=== PATIENT | female | born 1930 | race Caucasian/White ===

== ENCOUNTER 2018-08-08 10:46 | Inpatient (IN) | payer MEDICARE, OTHER ==
[~2018-08-08] VITALS: Ht 180.3 cm; Wt 70.1 kg
[2018-08-08] MEDS ORDERED: ALBUTEROL/IPRATROPIUM 3 ML NEB NEB ONE (11:15)
[2018-08-08] MEDS ORDERED: METHYLPREDNISOLONE SOD SUCC 125 MG/2ML VIAL IV ONE (11:15)
[2018-08-08] MEDS ORDERED: LEVOFLOXACIN 750MG/D5W 150ML 150 ML IV ONE (11:15)
[2018-08-08] MEDS: SODIUM CHLORIDE 0.9% 1000ML 1,000 ML IV SCH ×2 (11:30→21:21)
--- NOTE | 2018-08-08 11:39 | Diagnostic Imaging Report ---
EXAMINATION: PA and lateral views of the chest. COMPARISON: None CLINICAL HISTORY: Cough x1 week DISCUSSION: The lungs are well-inflated. No focal consolidation, pleural effusion, or pneumothorax. Scattered faint nodular opacities throughout the right and left lungs. Postsurgical changes of the mediastinum with intact sternotomy wires and surgical clips. Normal heart size. Tortuous thoracic aorta with atherosclerotic calcification. No overt pulmonary edema. No acute osseous abnormality. IMPRESSION: No acute cardiopulmonary abnormality. Specifically, no evidence of consolidative pneumonia in this patient with reported history of cough. Scattered bilateral small nodular opacities are likely sequela of prior infectious or inflammatory process in the absence of known malignancy. Prior chest radiographs, if available, would be useful for comparison purposes. In the absence of prior chest radiographs, nonemergent CT scan of the chest without contrast is suggested for further evaluation. Signed by: Dr. Arvind Adames M.D. on 08/08/2018 11:35 AM
[2018-08-08] MEDS: CEFTRIAXONE SOD 1 GM VIAL IV SCH (12:30)
--- NOTE | 2018-08-08 12:56 | Diagnostic Imaging Report ---
EXAMINATION: CT scan of the chest with contrast. TECHNIQUE: Spiral CT images of the chest were performed from the lung apices to the level of the adrenal glands after the intravenous administration of 75 cc of Isovue-370. Coronal and sagittal reformatted images were obtained. COMPARISON: Chest radiograph same day CLINICAL HISTORY:Cough DISCUSSION: LINES/TUBES: None. LUNGS AND AIRWAYS: Scattered subcentimeter bilateral pulmonary nodules as follows: 5 mm right upper lobe series 3 image 44 4 mm right upper lobe series 3 image 60 5 mm lingular series 3 image 69 5 mm left lower lobe series 3 image 96 4 mm left lower lobe x2 series 3 image 100 5 mm right lower lobe series 3 image 91 5 mm superior segment right lower lobe, calcified, series 3 image 55. There are fairly extensive tree-in-bud nodular opacities within the right upper and lower lobes, and, to a lesser extent in the right middle lobe and lingula. Bandlike opacities in the lung bases, with associated segmental mucoid impaction as seen on series 3 image 99 and 87. PLEURA: No pneumothorax or pleural effusions. HEART AND MEDIASTINUM: Heterogeneous enlargement of the left lobe of the thyroid with a 1.5 cm hypoattenuating nodule and several coarse calcifications with retrosternal extension. Bilateral hilar lymphadenopathy with multiple mildly prominent mediastinal lymph nodes. Pulmonary outflow tract is of normal caliber. No ectasia or aneurysmal dilatation of the thoracic aorta. No pericardial effusion. Atherosclerotic calcification of the aortic arch, great vessels, and [place] coronary arteries. LYMPH NODES: As above ABDOMEN: Coarse calcification in hepatic segment 7. Visualized portions of the liver, spleen, pancreas, and adrenals are otherwise unremarkable. BONES AND SOFT TISSUES: Coarse calcification in the left breast. Otherwise no focal soft tissue abnormalities. No osseous destructive lesions. Postsurgical changes of the sternum and mediastinum. Multilevel degenerative disc changes of the partially visualized thoracic and lower cervical spine. IMPRESSION: Diffuse tree-in-bud and groundglass opacities suggestive of atypical infection, to include nontuberculous mycobacterium as well as fungal etiologies. Reactive hilar and mild mediastinal lymphadenopathy. Segmental mucoid impaction in the lower lobes with postobstructive aspiration pneumonitis. Scattered bilateral pulmonary nodules measuring up to 5 mm, likely sequela of prior granulomatous disease. If the patient is at high risk for malignancy, a follow-up CT scan of the chest without contrast is suggested in one year to assess for stability. Atherosclerotic vascular disease with postsurgical changes related to coronary artery bypass. Heterogeneous left thyroid nodule may be further assessed by outpatient ultrasound. Signed by: Dr. Arvind Adames M.D. on 08/08/2018 12:53 PM
[2018-08-08] MEDS ORDERED: CEFTRIAXONE SOD 1 GM VIAL IM ONE (13:00)
[2018-08-08] MEDS: AZITHROMYCIN 250MG/NS 100 ML 100 ML IV SCH (13:43)
[2018-08-08] MEDS ORDERED: SIMVASTATIN20 MG PO (17:04)
[2018-08-08] MEDS ORDERED: MIRALAX17 GM PEG (17:04)
[2018-08-08] MEDS ORDERED: GLUCOPHAGE850 MG (17:04)
[2018-08-08] MEDS ORDERED: METFORMIN HCL500 MG PO (17:04)
[2018-08-08] MEDS ORDERED: HYZAAR 50-12.51 EACH PO (17:04)
[2018-08-08] MEDS ORDERED: NITROGLYCERIN0.4 MG SL (17:04)
[2018-08-08] MEDS ORDERED: FISH OIL 1,0001 EACH PO (17:04)
[2018-08-08] MEDS ORDERED: PLAVIX75 MG PO (17:04)
[2018-08-08] MEDS ORDERED: COREG3.125 MG PO (17:04)
[2018-08-08] MEDS ORDERED: MULTI-VITAMIN1 EACH PO (17:04)
[2018-08-08] MEDS ORDERED: ISOSORBIDE MONO30 MG PO (17:04)
[2018-08-08 17:15] VITALS: BP 127/98
[2018-08-08] MEDS: ENOXAPARIN SOD INJ 40 MG/0.4 ML SYR SC SCH (18:17)
[2018-08-08 19:00] VITALS: BP 120/82
[2018-08-08] MEDS: ALBUTEROL/IPRATROPIUM 3 ML NEB NEB SCH ×2 (19:00→23:20)
[2018-08-08 20:17] LABS: BASOPHILS % 0.3 % (0.0-1.0); HEMATOCRIT 36.9 % (34.2-44.1); HEMOGLOBIN 12.4 g/dL (12.0-16.0); LYMPHOCYTES # (AUTO) 1.4 (1.0-3.2); LYMPHOCYTES % 12.2 % (18.0-39.1); MEAN CORPUSCULAR HEMOGLOBIN 31.5 pg (28-32); MEAN CORPUSCULAR HGB CONC 33.6 g/dL (31-35); MEAN CORPUSCULAR VOLUME 93.7 fL (81-99); MONOCYTES # (AUTO) 0.2 (0.2-0.8); MONOCYTES % 1.3 % (4.4-11.3); NEUTROPHILS # (AUTO) 9.8 (2.1-6.9); NEUTROPHILS % 84.4 % (38.7-80.0); PLATELET COUNT 343 x10e3/uL (140-360); RED BLOOD COUNT 3.94 x10e6/uL (3.6-5.1); RED CELL DISTRIBUTION WIDTH 12.2 % (11.7-14.4)
[2018-08-08 20:42] LABS: ALANINE AMINOTRANSFERASE 19 IU/L (0-55); ALBUMIN 2.6 g/dL (3.5-5.0); ALBUMIN/GLOBULIN RATIO 0.7 (0.8-2.0); ALKALINE PHOSPHATASE 86 IU/L (40-150); ANION GAP 17.1 mmol/L (8-16); BLOOD UREA NITROGEN 23 mg/dL (7-26); BUN/CREATININE RATIO 21 (6-25); CALCIUM 9.7 mg/dL (8.4-10.2); CARBON DIOXIDE 28 mmol/L (22-29); CHLORIDE 95 mmol/L (98-107); CREATINE KINASE 28 IU/L (29-168); EST GLOMERULAR FILTRATION RATE 47 ML/MIN (60-); GLUCOSE 329 mg/dL (74-118); POTASSIUM 4.1 mmol/L (3.5-5.1); SODIUM 136 mmol/L (136-145)
[2018-08-08 23:00] VITALS: BP 111/67
[2018-08-09] VITALS (9 sets, daily range): BP systolic 111–141; BP diastolic 63–79
[2018-08-09] MEDS: ALBUTEROL/IPRATROPIUM 3 ML NEB NEB SCH ×6 (03:30→23:45)
[2018-08-09] MEDS: SODIUM CHLORIDE 0.9% 1000ML 1,000 ML IV SCH ×2 (08:00→17:14)
[2018-08-09] MEDS ORDERED: NITROGLYCERIN 0.4 MG SUBL SL PRN (08:15)
[2018-08-09] MEDS ORDERED: [UNRECOGNIZED DRUG - OTHER] PO SCH (09:00)
[2018-08-09] MEDS ORDERED: OMEGA PO SCH (09:00)
[2018-08-09] MEDS ORDERED: FISH OIL PO SCH (09:00)
[2018-08-09] MEDS: POLYETHYLENE GLYCOL 3350 17 GM PACK PEG SCH (09:00)
[2018-08-09] MEDS ORDERED: FATTY ACIDS PO SCH (09:00)
[2018-08-09 09:17] LABS: CHOL/HDL RATIO 3.7 (3.0-3.6)
[2018-08-09] MEDS: CLOPIDOGREL BISULFATE 75 MG TAB PO SCH (09:24)
[2018-08-09] MEDS: CARVEDILOL 3.125 MG TAB PO SCH ×2 (09:24→21:14)
[2018-08-09] MEDS: MULTIVITAMINS/MINERALS TAB PO SCH (09:24)
[2018-08-09] MEDS: OMEGA 3 POLYUNSAT FATTY ACIDS 1000 MG SOFTGEL PO SCH (09:24)
[2018-08-09] MEDS: FAMOTIDINE 20 MG TAB PO SCH ×2 (09:24→16:29)
[2018-08-09] MEDS: ISOSORBIDE MONONITRATE 30 MG TAB CR PO SCH (09:27)
--- NOTE | 2018-08-09 14:02 | History and Physical ---
PRIMARY CARE PHYSICIAN: None. CHIEF COMPLAINT: Cough. HISTORY OF PRESENT ILLNESS: This is an 88-year-old woman with a history of stroke, now developing what she described as a hacky cough ongoing for 1 week, subsequently developed sore throat. Patient went to a nearby clinic through strep negative. Subsequently, went to another clinic. Chest x-ray was done yesterday, which showed pneumonia. She was sent to this hospital for further evaluation and management. Denies any chest pain. PAST MEDICAL HISTORY: Diabetes mellitus type 2, stroke, coronary artery disease, status post coronary artery bypass grafting, status post 2 stents, hypertension, secondhand cigarette exposure. PAST SURGICAL HISTORY: Coronary artery bypass grafting, coronary stent x2, appendectomy, hysterectomy, bladder suspension surgery. ALLERGIES: PER ELECTRONIC MEDICAL RECORD. FAMILY HISTORY AND SOCIAL HISTORY: Patient is . She has 1 son. No alcohol, illicits, or cigarettes. She does have significant exposure to secondhand smoking by . She is a retired exhaust and muffler fitter. MEDICATIONS: Per electronic medical record. REVIEW OF SYSTEMS: Denies any dizziness or chest pain. Denies any fevers, chills, sweats, nausea, vomiting, diarrhea, headache, back pain, or vision changes. PHYSICAL EXAMINATION VITAL SIGNS: Have been reviewed. GENERAL: A tired-appearing woman, resting in bed. HEENT: Anicteric. CARDIOVASCULAR: Normal S1 and S2. LUNGS: She has reduced breath sounds throughout. She has crackles bilaterally. ABDOMEN: Soft, nontender, and nondistended. EXTREMITIES: No edema or calf tenderness. NEUROLOGIC: Alert and oriented x3, moving all extremities. SKIN: Dry. LABS: Reviewed. MEDICATIONS: Reviewed. ASSESSMENT: This is an 88-year-old woman; 1. Community-acquired pneumonia. 2. Mediastinal lymphadenopathy. 3. Pneumonitis. 4. Pulmonary nodules. 5. Left thyroid nodule. 6. Acute kidney injury. 7. Diabetes mellitus type 2. 8. Hyperlipidemia. 9. Hypertension. PLAN 1. Antibiotics for pneumonia. 2. Pulmonary consultation for evaluation of the pulmonary nodules. 3. Will hold off steroids at this time. 4. Will need thyroid workup outpatient. 5. Will assess renal function. 6. Hemoglobin A1c and lipid panel. 7. Pepcid and Lovenox for prophylaxis. 8. Continue with statin medication. 9. Continue antihypertensive medications. Job#: [id number] CORI
[2018-08-09] MEDS: CEFTRIAXONE SOD 1 GM VIAL IV SCH (14:29)
[2018-08-09] MEDS: AZITHROMYCIN 250MG/NS 100 ML 100 ML IV SCH (14:58)
--- NOTE | 2018-08-09 15:11 | Consultation ---
DATE OF CONSULTATION: August 09, 2018 PULMONARY/CRITICAL CARE CONSULTATION REFERRING PHYSICIAN: Dr. Balwinder Schulte. HISTORY OF PRESENT ILLNESS: The patient is an 88-year-old woman. She had a history of pneumonia 12 years ago, but has not had any other respiratory problems. She denies having oxygen at home or using inhalers at home. Over the past week, she has noticed increasing cough and congestion. She noticed some fevers as well. Her cough is worse after she eats. She some times coughs and chokes while eating. The patient went to a local ready clinic. She was felt to have pneumonia and then referred to the emergency department. After her arrival in the emergency department, she had a CT scan of the chest that showed diffuse infiltrates with a tree-in-bud appearance typical for atypical pneumonia or possible aspiration. She received some antibiotics as well as some breathing treatments and noted some improvement. PAST MEDICAL HISTORY: 1. Hypertension. 2. Coronary artery disease. 3. No prior known respiratory problems. PAST SURGICAL HISTORY: 1. History of coronary bypass grafting. 2. History of stent placement times 2. ALLERGIES: SHE IS ALLERGIC TO SULFA. SOCIAL HISTORY: The patient was never a smoker. She is not a drinker. REVIEW OF SYSTEMS: The patient did have fevers at home but is afebrile here. She is not having any headache. She does not complain of neck pain. She has some cough with minimal phlegm production. She is not having any chest pain. She does note some dyspnea and congestion. She is not having any abdominal pain. There is no nausea or vomiting. She has no leg edema. PHYSICAL EXAMINATION: VITAL SIGNS: The patient is afebrile. Vital signs are stable. O2 saturation is 95% on 2 liters. Her pulse is 80 and respiratory rate is 18. HEENT: Examination shows no facial swelling or erythema. The nasal mucosa is normal. The oropharynx is normal. LYMPHATIC: Examination shows no submandibular, cervical or supraclavicular adenopathy. CARDIAC: Exam reveals a regular rate and rhythm with normal S1 and S2. There are no murmurs or rubs. LUNGS: Reveals rhonchus breath sounds bilaterally. There is no wheezing. ABDOMEN: Is soft and nontender. There is no rebound or guarding. EXTREMITIES: Shows no leg edema or calf tenderness. There is no cyanosis or clubbing. SKIN: Examination shows no rashes. LABORATORY DATA: The BUN to creatinine level is 23:1.1. The glucose is 329. White blood cell count of 11.63 and platelet count is 343,000. IMPRESSION 1. Aspiration pneumonia. 2. Possible atypical mycobacterial infection. 3. Dehydration with elevated creatinine. 4. Acute kidney injury. 5. Hyperglycemia. 6. Coronary artery disease. 7. Hypertension PLAN: 1. Continue current antibiotics to cover for aspiration pneumonia. 2. Swallowing evaluation. 3. If the patient does not improve with antibiotics for aspiration pneumonitis, with modified barium swallow, depending on the patient's clinical response to antibiotics and her swallowing test, evaluation for atypical mycobacterial infection may be required in the future. 4. Nutritional evaluation. 5. Intravenous fluids. 6. Monitor blood sugar. 7. Repeat blood test in a.m. 8. Physical therapy. Job#: [id number]
[2018-08-09] MEDS: ENOXAPARIN SOD INJ 40 MG/0.4 ML SYR SC SCH (16:29)
[2018-08-09] MEDS: SIMVASTATIN 20 MG TAB PO SCH (21:14)
[2018-08-10] VITALS (8 sets, daily range): BP systolic 123–148; BP diastolic 59–90
[2018-08-10] MEDS: SODIUM CHLORIDE 0.9% 1000ML 1,000 ML IV SCH ×2 (02:51→14:21)
[2018-08-10] MEDS: ALBUTEROL/IPRATROPIUM 3 ML NEB NEB SCH ×5 (03:40→19:35)
[2018-08-10 05:10] LABS: BASOPHILS # (AUTO) 0.1 (0.0-0.1); BASOPHILS % 0.4 % (0.0-1.0); EOSINOPHILS # (AUTO) 0.2 (0.0-0.4); EOSINOPHILS % 0.9 % (0.0-6.0); HEMATOCRIT 37.7 % (34.2-44.1); HEMOGLOBIN 12.6 g/dL (12.0-16.0); LYMPHOCYTES # (AUTO) 3.9 (1.0-3.2); LYMPHOCYTES % 24.3 % (18.0-39.1); MEAN CORPUSCULAR HEMOGLOBIN 31.4 pg (28-32); MEAN CORPUSCULAR HGB CONC 33.4 g/dL (31-35); MONOCYTES % 6.3 % (4.4-11.3); NEUTROPHILS # (AUTO) 10.6 (2.1-6.9); NEUTROPHILS % 66.3 % (38.7-80.0); PLATELET COUNT 305 x10e3/uL (140-360); RED BLOOD COUNT 4.01 x10e6/uL (3.6-5.1); RED CELL DISTRIBUTION WIDTH 12.2 % (11.7-14.4)
[2018-08-10 05:31] LABS: ALANINE AMINOTRANSFERASE 24 IU/L (0-55); ALBUMIN 2.6 g/dL (3.5-5.0); ALBUMIN/GLOBULIN RATIO 0.8 (0.8-2.0); ALKALINE PHOSPHATASE 74 IU/L (40-150); ANION GAP 14.8 mmol/L (8-16); BLOOD UREA NITROGEN 22 mg/dL (7-26); BUN/CREATININE RATIO 27 (6-25); CALCIUM 9.6 mg/dL (8.4-10.2); CARBON DIOXIDE 27 mmol/L (22-29); CHLORIDE 105 mmol/L (98-107); CREATININE, SERUM 0.83 mg/dL (0.57-1.11); EST GLOMERULAR FILTRATION RATE > 60 ML/MIN (60-); GLUCOSE 123 mg/dL (74-118); POTASSIUM 3.8 mmol/L (3.5-5.1); SODIUM 143 mmol/L (136-145)
[2018-08-10] MEDS: POLYETHYLENE GLYCOL 3350 17 GM PACK PEG SCH (08:21)
[2018-08-10] MEDS: MULTIVITAMINS/MINERALS TAB PO SCH (08:25)
[2018-08-10] MEDS: ISOSORBIDE MONONITRATE 30 MG TAB CR PO SCH (08:25)
[2018-08-10] MEDS: OMEGA 3 POLYUNSAT FATTY ACIDS 1000 MG SOFTGEL PO SCH (08:25)
[2018-08-10] MEDS: CARVEDILOL 3.125 MG TAB PO SCH ×2 (08:25→20:26)
[2018-08-10] MEDS: CLOPIDOGREL BISULFATE 75 MG TAB PO SCH (08:25)
[2018-08-10] MEDS: FAMOTIDINE 20 MG TAB PO SCH ×2 (08:25→17:11)
[2018-08-10] MEDS ORDERED: DEXTROSE 50% SYRINGE 50 ML IV PRN (10:00)
[2018-08-10] MEDS: INSULIN REGULAR, HUMAN 100 UNIT/1 ML 3ML VIAL SQ SCH ×3 (11:48→20:26)
[2018-08-10] MEDS: AZITHROMYCIN 250MG/NS 100 ML 100 ML IV SCH (14:21)
[2018-08-10] MEDS: CEFTRIAXONE SOD 1 GM VIAL IV SCH (14:21)
--- NOTE | 2018-08-10 14:38 | Progress Note ---
DATE: 08/10/2018 PULMONARY PROGRESS NOTE SUBJECTIVE: The patient feels better today after receiving hydration and IV antibiotics. Her creatinine has returned to normal. Speech therapy evaluated her swallowing function but the final results are still not available. Dietary evaluated the patient and noticed inadequate caloric and protein intake. PHYSICAL EXAMINATION GENERAL: The patient is afebrile. VITAL SIGNS: Stable. HEENT: Shows no facial swelling or erythema. CARDIAC: Reveals regular, rate and rhythm with normal S1 and S2. LUNGS: Auscultation of the lung shows clear breath sounds bilaterally. There is no wheezing. ABDOMEN: Soft, nontender. There is no rebound or guarding. EXTREMITIES: Shows no leg edema or calf tenderness. There is no cyanosis or clubbing. SKIN: Shows no rashes. IMPRESSION 1. Aspiration pneumonia with sepsis, present on admission. 2. Acute kidney injury. 3. Dehydration that has resolved. 4. Moderate protein-calorie malnutrition. 5. Possible atypical mycobacterial infection. 6. Diabetes with hyperglycemia. PLAN 1. Continued current antibiotics. 2. Await results of swallowing evaluation. 3. Patient will require follow up as an outpatient along with a followup CT scan to check for resolution of the findings. 4. If the findings do not improve with treatment for aspiration pneumonitis, then a bronchoscopy to evaluate for atypical mycobacterial infection is indicated. 5. Address nutritional needs. Job#: [id number] LPA MTDD
[2018-08-10] MEDS: ENOXAPARIN SOD INJ 40 MG/0.4 ML SYR SC SCH (17:11)
[2018-08-10] MEDS: SIMVASTATIN 20 MG TAB PO SCH (20:26)
--- NOTE | 2018-08-10 23:18 | Progress Note ---
DATE: August 10, 2018 TIME: 7:15 a.m. OVERNIGHT: Feeling a little better. REVIEW OF SYSTEMS: Denies any dizziness or chest pain. Denies any fever, chills, sweats, nausea, vomiting, or diarrhea. She did have some difficulty swallowing. PHYSICAL EXAMINATION VITAL SIGNS: Reviewed. GENERAL APPEARANCE: Tired-appearing woman resting in bed. HEENT: Anicteric. CARDIOVASCULAR: Normal S1 and S2. No murmurs. LUNGS: Decreased breath sounds throughout. She has crackles bilaterally. ABDOMEN: Soft, nontender, and nondistended. EXTREMITIES: No edema or calf tenderness. SKIN: Dry. PSYCHIATRIC: Flat affect. LABS: Reviewed. MEDICATIONS: Reviewed. ASSESSMENT: An 88-year-old woman with: 1. Community-acquired pneumonia. 2. Lymphadenopathy. 3. Pneumonitis. 4. Pulmonary nodules. 5. Left thyroid nodule. 6. Acute kidney injury. 7. Diabetes mellitus type 2; hemoglobin A1c is 6.0 and LDL of 54. 8. Hypertension. 9. Hyperlipidemia. 10. Dysphagia. PLAN 1. Swallow evaluation. 2. Antibiotics for pneumonia. 3. White count has increased from 11,000 to 15,000 without the antibiotics. 4. Acute kidney injury, resolving. 5. Follow up swallow evaluation. 6. Continue supportive care. Job#: [id number] DESIREE
[2018-08-11] MEDS: ALBUTEROL/IPRATROPIUM 3 ML NEB NEB SCH ×5 (01:55→19:55)
[2018-08-11 04:47] VITALS: BP 134/72
[2018-08-11] MEDS: SODIUM CHLORIDE 0.9% 1000ML 1,000 ML IV SCH ×3 (06:33→22:25)
[2018-08-11 07:27] VITALS: BP 142/77
[2018-08-11] MEDS: FAMOTIDINE 20 MG TAB PO SCH ×2 (08:30→17:50)
[2018-08-11] MEDS: CARVEDILOL 3.125 MG TAB PO SCH ×2 (08:31→21:00)
[2018-08-11] MEDS: OMEGA 3 POLYUNSAT FATTY ACIDS 1000 MG SOFTGEL PO SCH (08:31)
[2018-08-11] MEDS: POLYETHYLENE GLYCOL 3350 17 GM PACK PEG SCH (08:31)
[2018-08-11] MEDS: MULTIVITAMINS/MINERALS TAB PO SCH (08:31)
[2018-08-11] MEDS: CLOPIDOGREL BISULFATE 75 MG TAB PO SCH (08:31)
[2018-08-11] MEDS: INSULIN REGULAR, HUMAN 100 UNIT/1 ML 3ML VIAL SQ SCH ×4 (08:31→21:00)
[2018-08-11] MEDS: ISOSORBIDE MONONITRATE 30 MG TAB CR PO SCH (08:31)
[2018-08-11 09:02] LABS: BASOPHILS # (AUTO) 0.1 (0.0-0.1); BASOPHILS % 0.5 % (0.0-1.0); EOSINOPHILS # (AUTO) 0.3 (0.0-0.4); EOSINOPHILS % 2.6 % (0.0-6.0); HEMATOCRIT 41.3 % (34.2-44.1); HEMOGLOBIN 13.3 g/dL (12.0-16.0); LYMPHOCYTES # (AUTO) 3.3 (1.0-3.2); LYMPHOCYTES % 25.5 % (18.0-39.1); MEAN CORPUSCULAR HEMOGLOBIN 30.9 pg (28-32); MEAN CORPUSCULAR HGB CONC 32.2 g/dL (31-35); MONOCYTES % 7.4 % (4.4-11.3); NEUTROPHILS # (AUTO) 7.9 (2.1-6.9); NEUTROPHILS % 61.5 % (38.7-80.0); PLATELET COUNT 383 x10e3/uL (140-360); RED CELL DISTRIBUTION WIDTH 12.3 % (11.7-14.4)
[2018-08-11 09:18] LABS: ANION GAP 10.1 mmol/L (8-16); BLOOD UREA NITROGEN 15 mg/dL (7-26); BUN/CREATININE RATIO 18 (6-25); CALCIUM 10.3 mg/dL (8.4-10.2); CARBON DIOXIDE 33 mmol/L (22-29); CHLORIDE 102 mmol/L (98-107); CREATININE, SERUM 0.84 mg/dL (0.57-1.11); EST GLOMERULAR FILTRATION RATE > 60 ML/MIN (60-); GLUCOSE 154 mg/dL (74-118); POTASSIUM 4.1 mmol/L (3.5-5.1); SODIUM 141 mmol/L (136-145)
[2018-08-11 12:41] VITALS: BP 129/68
[2018-08-11] MEDS: AZITHROMYCIN 250MG/NS 100 ML 100 ML IV SCH (14:59)
[2018-08-11] MEDS: CEFTRIAXONE SOD 1 GM VIAL IV SCH (14:59)
[2018-08-11 16:32] VITALS: BP 111/58
--- NOTE | 2018-08-11 16:43 | Progress Note ---
DATE: August 11, 2018 TIME: 10:50 a.m. OVERNIGHT: No acute events. REVIEW OF SYSTEMS: Patient denies any dizziness or chest pain. Report shortness of breath with exertion such as consuming p.o. intake and repositioning. Denies fever, chills, sweats, nausea, vomiting, and diarrhea. Denies difficulty swallowing on this day. PHYSICAL EXAMINATION VITAL SIGNS: T 97.9, R 20, P 78, BP 142/77, SpO2 95% on RA. GENERAL APPEARANCE: This is a very tired-appearing woman, resting supine in bed. HEENT: Normocephalic. Mucous membranes pale, moist, and intact. No sinus tenderness. Trachea midline without JVD. CV: S1/S2 auscultated without clicks, murmurs, or rubs. RESPIRATORY: Bilateral breath sounds decreased in all stacy with fine crackles at bases and slight expiratory wheeze midline that results with cough. ABDOMEN: Soft, nontender, and nondistended. EXTREMITIES: No edema visualized. No calf tenderness. SKIN: Dry. PSYCHIATRIC: Flat affect. LABS: NA 141, K 4.1, CO of 102, CO2 of 33, gap 10.1, BUN 15, creatinine 0.83 with estimated GFR 60. Calcium 10.3. Point of care glucose ranging from 67 to 221 max last 24 hours. WBC remained elevated at 12.82 down from 16 the day prior. H and H values 13.3/41.3. Platelets elevated at 383. Influenza screening negative. Urine Legionella pending. MEDICATIONS 1. Rocephin 1 g q.24. 2. Azithromycin IV q.24. 3. Normal saline at 100 mL an hour. 4. DuoNeb q.4 hours routine. 5. Fish oil 1 g p.o. daily. 6. MiraLAX 1 pack daily. 7. MDI 1 p.o. q.d. 8. Imdur 30 mg p.o. daily. 9. Plavix 75 p.o. daily. 10. Coreg 3.125 p.o. q.12 hours. 11. Pepcid 20 b.i.d. a.c. 12. Zocor 20 mg p.o. at bedtime. 13. Lovenox at 1700. 14. Sliding scale insulin. ASSESSMENT AND PLAN: This is an 88-year-old woman with; 1. Community-acquired pneumonia. Continue IV antibiotics. 2. Lymphadenopathy. 3. Pneumonitis. Appreciate pulmonary consult. 4. Left thyroid nodule. Followup as outpatient. 5. Acute kidney injury, resolved with IV fluids. 6. Diabetes mellitus type 2. Hemoglobin A1c and LDLs reviewed. Continue sliding scale insulin. 7. Hypertensin. Continue to monitor and current treatment. 8. Hyperlipidemia, statin. 9. Dysphagia. Swallow eval indicated. Patient could have regular fluid and thin liquids at this time. Patient tolerated the small amounts noted this date. 10. Prophylaxis. Lovenox and Pepcid. DISPOSITION: Patient will need outpatient followup for pulmonary nodules and thyroid nodules. Continue IV antibiotics as the patient is complaining of severe fatigue. At this time, continue supportive care. Dictated by: Joseph Chavarria NP Job#: [id number] CORI
[2018-08-11] MEDS: ENOXAPARIN SOD INJ 40 MG/0.4 ML SYR SC SCH (17:50)
[2018-08-11 20:00] VITALS: BP 122/58
[2018-08-11] MEDS: SIMVASTATIN 20 MG TAB PO SCH (21:00)
[2018-08-12] VITALS (8 sets, daily range): BP systolic 122–189; BP diastolic 60–81
[2018-08-12] MEDS: ALBUTEROL/IPRATROPIUM 3 ML NEB NEB SCH ×5 (00:10→15:46)
[2018-08-12 06:18] LABS: BASOPHILS # (AUTO) 0.1 (0.0-0.1); BASOPHILS % 0.6 % (0.0-1.0); EOSINOPHILS # (AUTO) 0.5 (0.0-0.4); EOSINOPHILS % 4.7 % (0.0-6.0); HEMATOCRIT 36.8 % (34.2-44.1); HEMOGLOBIN 12.2 g/dL (12.0-16.0); LYMPHOCYTES # (AUTO) 3.1 (1.0-3.2); LYMPHOCYTES % 29.6 % (18.0-39.1); MEAN CORPUSCULAR HEMOGLOBIN 31.3 pg (28-32); MEAN CORPUSCULAR HGB CONC 33.2 g/dL (31-35); MEAN CORPUSCULAR VOLUME 94.4 fL (81-99); MONOCYTES # (AUTO) 0.9 (0.2-0.8); MONOCYTES % 8.5 % (4.4-11.3); NEUTROPHILS # (AUTO) 5.6 (2.1-6.9); NEUTROPHILS % 53.6 % (38.7-80.0); PLATELET COUNT 325 x10e3/uL (140-360); RED CELL DISTRIBUTION WIDTH 12.6 % (11.7-14.4)
[2018-08-12] MEDS: SODIUM CHLORIDE 0.9% 1000ML 1,000 ML IV SCH (06:19)
[2018-08-12 06:40] LABS: ANION GAP 11.9 mmol/L (8-16); BLOOD UREA NITROGEN 15 mg/dL (7-26); BUN/CREATININE RATIO 19 (6-25); CALCIUM 8.1 mg/dL (8.4-10.2); CARBON DIOXIDE 27 mmol/L (22-29); CHLORIDE 104 mmol/L (98-107); CREATININE, SERUM 0.77 mg/dL (0.57-1.11); EST GLOMERULAR FILTRATION RATE > 60 ML/MIN (60-); GLUCOSE 127 mg/dL (74-118); POTASSIUM 3.9 mmol/L (3.5-5.1); SODIUM 139 mmol/L (136-145)
[2018-08-12] MEDS: POLYETHYLENE GLYCOL 3350 17 GM PACK PEG SCH (09:00)
[2018-08-12] MEDS: FAMOTIDINE 20 MG TAB PO SCH ×2 (09:21→15:42)
[2018-08-12] MEDS: INSULIN REGULAR, HUMAN 100 UNIT/1 ML 3ML VIAL SQ SCH ×3 (09:22→15:42)
[2018-08-12] MEDS: OMEGA 3 POLYUNSAT FATTY ACIDS 1000 MG SOFTGEL PO SCH (09:22)
[2018-08-12] MEDS: CLOPIDOGREL BISULFATE 75 MG TAB PO SCH (09:22)
[2018-08-12] MEDS: ISOSORBIDE MONONITRATE 30 MG TAB CR PO SCH (09:22)
[2018-08-12] MEDS: CARVEDILOL 3.125 MG TAB PO SCH (09:22)
[2018-08-12] MEDS: MULTIVITAMINS/MINERALS TAB PO SCH (09:22)
[2018-08-12] MEDS ORDERED: TESSALON PERLE100 MG PO (09:30)
[2018-08-12] MEDS ORDERED: LEVAQUIN500 MG PO (09:30)
[2018-08-12 10:26] LABS: EOSINOPHILS % (MANUAL) 2 % (0-7); LYMPHOCYTES % (MANUAL) 29 % (19-48); METAMYELOCYTES % (MANUAL) 1 % (0-0); MONOCYTES % (MANUAL) 6 % (3.4-9.0); MYELOCYTES % (MANUAL) 2 % (0-0); NEUTROPHILS % (MANUAL) 60 % (40-74)
[2018-08-12 10:32] LABS: ANISOCYTOSIS SLIGHT; PLATELET ESTIMATE ADEQUATE; PLATELET MORPHOLOGY COMMENT NORMAL; RBC MORPHOLOGY COMMENT NORMAL
[2018-08-12] MEDS ORDERED: LABETALOL HCL 5 MG/ML 20ML VIAL IV PRN (11:45)
[2018-08-12] MEDS: CEFTRIAXONE SOD 1 GM VIAL IV SCH (13:40)
[2018-08-12] MEDS: AZITHROMYCIN 250MG/NS 100 ML 100 ML IV SCH (13:40)
[2018-08-12] MEDS: ENOXAPARIN SOD INJ 40 MG/0.4 ML SYR SC SCH (15:42)
--- NOTE | 2018-08-13 12:10 | Diagnostic Imaging Report ---
PROCEDURE: X-RAY MODIFIED BARIUM SWALLOW COMPARISON: None. INDICATION: Difficulty swallowing DISCUSSION: Fluoroscopic examination was performed in conjunction with speech pathology during swallowing a variety of thin and thick liquid consistencies. CONCLUSION: Limited fluoroscopic sequences are provided which demonstrate a small amount of penetration to the level of the vocal cords with associated aspiration. Please refer to speech pathology report for further details. Signed by: Dr. Pamela Urban MD on 08/13/2018 12:07 PM
--- NOTE | 2018-08-13 22:19 | Discharge Summary ---
PRINCIPAL DIAGNOSES: 1. Community-acquired pneumonia. 2. Lymphadenopathy. 3. Pneumonitis. 4. Pulmonary nodules. 5. Left thyroid nodule. 6. Acute kidney injury. 7. Diabetes mellitus type 2. Hemoglobin A1c 6.0, LDL 54. 8. Dysphagia. SECONDARY DIAGNOSIS: Diabetes mellitus type 2. CHIEF COMPLAINT AND HISTORY OF PRESENT ILLNESS: Please refer to H and P. HOSPITAL COURSE: Patient found to have community-acquired pneumonia, received antibiotics. Also had lymphadenopathy and pneumonitis, treated conservatively. Pulmonary services assisted in management. Patient had pulmonary nodules, will need to follow up outpatient. Has left thyroid nodule, further outpatient workup is needed. Had acute kidney injury, improved with IV fluids. Diabetes mellitus type 2, hemoglobin A1c 6.0, LDL 54, currently at goal and controlled. Had hypertension and hyperlipidemia and dysphagia. Swallow eval was negative. Patient's white count improved. Patient subsequently transitioned home. Will continue antibiotic . DISCHARGE MEDICATIONS: Per electronic medical record. Discharge medications include Levaquin. FOLLOWUP: With primary care doctor in 1 week. Follow up with pulmonary services in 2 weeks. DANIELA PERAZA MD Job#: [id number]
--- OUTSIDE RECORDS SUMMARY | 2018-08-20 10:38 | XMS REPORT | Encounter Summary ---
Author Organization Unknown Address [address] [place] [address] Phone [phone] Reason for Visit Medical Complaint; body aches, sore throat and fever Instructions 1. Acute upper respiratory infection rapid strep group A, throat upper respiratory infection (cold): care instructions 2. Acute bronchitis Tessalon Perles 100 mg capsule bronchitis: care instructions albuterol sulfate HFA 90 mcg/actuation aerosol inhaler Zithromax 250 mg tablet 3. Elevated blood pressure elevated blood pressure: care instructions Discussion Note: None recorded. Plan of Care Patient Instructions Take albuterol every 4-6 hoursfor at least the next 5 days. Please complete antibiotic course even after symptoms resolve. Please f/u with PCP in 1 week or seek care immediatelyif you are short of breath, have trouble breathing, or can't catch breath. Please follow up with PCP for further testing and evaluation of hypertension. Please follow up with PCP/UC/ER if symptoms get worse or no improvement in 3 days. Patient verbalizes understanding and agrees to the plan. Reminders Provider Appointments None recorded. Lab Rapid Strep Group a, Throat 06/05/2016 [facility] Referral None recorded. Procedures None recorded. Surgeries None recorded. Imaging None recorded. Medications Name Start Date albuterol sulfate HFA 90 mcg/actuation aerosol inhaler Inhale 2 puff(s) every 4-6 hours by inhalation route as needed for wheezing. amitriptyline 25 mg tablet amoxicillin 500 mg capsule Azasite 1 % eye drops Benicar HCT 40 mg-12.5 mg tablet carvedilol 6.25 mg tablet cephalexin 500 mg capsule ciprofloxacin 250 mg tablet clopidogrel 75 mg tablet doxycycline hyclate 100 mg tablet fluorometholone 0.1 % eye drops,suspension fluticasone 50 mcg/actuation nasal spray,suspension Inhale 2 sprays in each nostril x1 week, then 1 spray in each nostril daily. FreshKote 2 %-0.9 %-1.8 % eye drops hydrocodone 7.5 mg-acetaminophen 325 mg tablet isosorbide mononitrate ER 30 mg tablet,extended release 24 hr isosorbide mononitrate ER 60 mg tablet,extended release 24 hr losartan 50 mg-hydrochlorothiazide 12.5 mg tablet metformin 1,000 mg tablet mupirocin 2 % topical ointment nitroglycerin 0.4 mg/hr transdermal 24 hour patch Nitrostat 0.4 mg sublingual tablet oxybutynin chloride ER 10 mg tablet,extended release 24 hr Restasis 0.05 % eye drops in a dropperette simvastatin 20 mg tablet Tessalon 200 mg capsule Take 1 CAPSULE 3 TIMES A DAY by oral route as needed for cough. Tessalon Perles 100 mg capsule Take 1 capsule(s) 3 times a day by oral route as needed for cough. Zithromax 250 mg tablet TAKE 2 TABLETS (500 MG) BY ORAL ROUTE ONCE DAILY FOR 1 DAY THEN 1 TABLET (250 MG) BY ORAL ROUTE ONCE DAILY FOR 4 DAYS Zostavax (PF) 19,400 unit/0.65 mL subcutaneous suspension Medications Administered None recorded. Vitals Height Weight BMI Blood Pressure 5 ft 11 in 165 lbs 23 (1) 160/82 (2) 150/80 Lab Results Date Name Result Description Value Range Status Rapid Strep Group a, Throat Result negative Swab Location Left and Right tonsillar pillars Allergies Name Reaction Severity Onset Sulfa (Sulfonamide Antibiotics) Hives Moderate Problems Name Status Onset Date Source Acute Upper Respiratory Infection Active Encounter Acute Bronchitis Active Encounter Elevated Blood Pressure Active Encounter Procedures None recorded. Vaccine List Vaccine Type influenza, high dose seasonal 08/04/2015 Social History Smoking Status Never Smoker Past Encounters 06/05/2016 Acute Upper Respiratory Infection; Acute Bronchitis; Elevated Blood Pressure Nicolewoodrow Clancy [facility]: [address] [place] [address], Ph. History of Present Illness [id number] Reported By: Patient HPI: Location: head/sinuses. Quality: productive cough, sore throat, colored phlegm, dry cough. Duration: 14days. Severity: moderate. Onset/Timing: gradual. Context: no sick contacts, no foreign travel, non-smoker. Modifying factors: OTC medication. Associated Symptoms: no shortness of breath, no wheezing, no change in number of pillows needed to sleep at night, no sweats, no significant weight gain, no significant weight loss, no morning cough, no sore throat, no vomiting, no diarrhea, no rash, no nausea, yellow sputum Review of Systems Basic Reported By: Patient Constitutional: Constitutional: fever Eyes: Eyes: no eye complaints Gnbb-Rbsw-Udrgh-Throat: Ears: no ear complaints. Nose: no nose/sinus problems. Mouth/Throat: no bleeding gums, no mouth complaints, no teeth problems, sore throat Cardiovascular: Cardiovascular: no chest pain, no shortness of breath, no known heart murmur Respiratory: Respiratory: no wheezing, no shortness of breath, cough Gastrointestinal: Gastrointestinal: no abdominal pain, no vomiting / diarrhea Genitourinary: Genitourinary: no urinary complaints, no discharge Musculoskeletal: Musculoskeletal: no muscle weakness, no arthralgias/joint pain, no back pain, muscle aches Skin: Skin: no abnormal / changing mole, no jaundice, no rashes Neurologic: Neurologic: no loss of consciousness, no weakness, no numbness, no seizures, no dizziness, no headaches Physical Exam Adult Basic, Adult Female Complete Constitutional: General Appearance: healthy-appearing, well-nourished, well-developed. Level of Distress: NAD. Ambulation: ambulating normally Psychiatric: Mental Status: active and alert. Orientation: to time, to place, to person Eyes: Lids and Conjunctivae: non-injected, no discharge, no pallor. Pupils: PERRLA. EOM: EOMI. Lens: clear. Sclerae: non-icteric Bxx-Tavo-Wttxn-Throat: Ears: no lesions on external ear, no outer ear tenderness, EACs clear, TMs clear. Hearing: no hearing loss. Nose: no lesions on external nose, nares patent, no septal deviation, nasal passages clear, no sinus tenderness, no nasal discharge. Lips, Teeth, and Gums: no mouth or lip ulcers, no bleeding gums, normal dentition. Oropharynx: moist mucous membranes, no exudates, tonsils not enlarged, erythema Neck: Neck: supple. Lymph Nodes: no cervical LAD Lungs: Respiratory effort: no dyspnea, no tachypnea, no use of accessory muscles, no intercostal retractions. Auscultation: expiratory wheezing Cardiovascular: Heart Auscultation: RRR, no murmurs Neurologic: Gait and Station: normal gait
--- OUTSIDE RECORDS SUMMARY | 2018-08-20 10:38 | XMS REPORT | Continuity of Care Document ---
Author Author [facility] Interface Address Unknown Phone Unavailable Problems Problem Status Onset Date Classification Date Reported Comments Source Sore throat symptom 08/07/2018 Diagnosis 08/07/2018 [facility] Nasal congestion 08/07/2018 Diagnosis 08/07/2018 [facility] Decreased breath sounds 08/07/2018 Diagnosis 08/07/2018 [facility] Fever 08/07/2018 Diagnosis 08/07/2018 [facility] Cough 08/07/2018 Diagnosis 08/07/2018 [facility] Hyperlipidemia 08/07/2018 Problem 08/07/2018 [facility] Heart Disease 08/07/2018 Problem 08/07/2018 [facility] Cerebrovascular Accident 08/07/2018 Problem 08/07/2018 [facility] Pneumonia 08/07/2018 Problem 08/07/2018 [facility] Arthritis 08/07/2018 Problem 08/07/2018 [facility] Hyperglycemia 08/07/2018 Problem 08/07/2018 [facility] Acute upper respiratory infection 06/05/2016 Diagnosis 06/05/2016 [facility] Acute bronchitis 06/05/2016 Diagnosis 06/05/2016 [facility] Elevated blood pressure 06/05/2016 Diagnosis 06/05/2016 [facility] Elevated Blood Pressure Problem 08/07/2018 [facility] Acute Upper Respiratory Infection Problem 06/05/2016 [facility] Acute Bronchitis Problem 06/05/2016 [facility] Medications Medication Details Route Status Patient Instructions Ordering Provider Order Date Source carvedilol 6.25 MG Oral Tablet carvedilol 6.25 mg tablet Active [facility] clopidogrel 75 MG Oral Tablet clopidogrel 75 mg tablet Active [facility] Hydrochlorothiazide 12.5 MG / Losartan Potassium 50 MG Oral Tablet losartan 50 mg-hydrochlorothiazide 12.5 mg tablet Active [facility] Metformin hydrochloride 1000 MG Oral Tablet metformin 1,000 mg tablet Active [facility] Cyclosporine 0.5 MG/ML Ophthalmic Suspension [Restasis] Restasis 0.05 % eye drops in a dropperette Active [facility] Simvastatin 20 MG Oral Tablet simvastatin 20 mg tablet Active [facility] 0.65 ML Varicella-Zoster Virus Vaccine Live ([facility]) strain [id number] UNT/ML Injection [Zostavax] Zostavax (PF) 19,400 unit/0.65 mL subcutaneous suspension Active [facility] 200 ACTUAT Albuterol 0.09 MG/ACTUAT Metered Dose Inhaler albuterol sulfate HFA 90 mcg/actuation aerosol inhaler Inhale 2 puff(s) every 4- 6 hours by inhalation route as needed for wheezing. Active [facility] Amitriptyline Hydrochloride 25 MG Oral Tablet amitriptyline 25 mg tablet Active [facility] Amoxicillin 500 MG Oral Capsule amoxicillin 500 mg capsule Active [facility] Azithromycin 10 MG/ML Ophthalmic Solution [AzaSite] Azasite 1 % eye drops Active [facility] Hydrochlorothiazide 12.5 MG / Olmesartan medoxomil 40 MG Oral Tablet [Benicar HCT] Benicar HCT 40 mg-12.5 mg tablet Active [facility] Cephalexin 500 MG Oral Capsule cephalexin 500 mg capsule Active [facility] Ciprofloxacin 250 MG Oral Tablet ciprofloxacin 250 mg tablet Active [facility] doxycycline hyclate 100 MG Oral Tablet doxycycline hyclate 100 mg tablet Active [facility] Fluorometholone 1 MG/ML Ophthalmic Suspension fluorometholone 0.1 % eye drops,suspension Active [facility] Fluticasone propionate 0.05 MG/ACTUAT Metered Dose Nasal [place] fluticasone 50 mcg/actuation nasal spray,suspension Inhale 2 sprays in each nostril x1 week, then 1 spray in each nostril daily. Active [facility] Polyvinyl Alcohol 27 MG/ML / Povidone 20 MG/ML Ophthalmic Solution [Freshkote] FreshKote 2 %-0.9 %-1.8 % eye drops Active [facility] Acetaminophen 325 MG / Hydrocodone Bitartrate 7.5 MG Oral Tablet hydrocodone 7.5 mg-acetaminophen 325 mg tablet Active [facility] 24 HR Isosorbide Mononitrate 30 MG Extended Release Oral Tablet isosorbide mononitrate ER 30 mg tablet,extended release 24 hr Active [facility] 24 HR Isosorbide Mononitrate 60 MG Extended Release Oral Tablet isosorbide mononitrate ER 60 mg tablet,extended release 24 hr Active [facility] Mupirocin 0.02 MG/MG Topical Ointment mupirocin 2 % topical ointment Active [facility] 24 HR Nitroglycerin 0.4 MG/HR Transdermal Patch nitroglycerin 0.4 mg/hr transdermal 24 hour patch Active [facility] Nitroglycerin 0.4 MG Sublingual Tablet [Nitrostat] Nitrostat 0.4 mg sublingual tablet Active [facility] 24 HR Oxybutynin chloride 10 MG Extended Release Oral Tablet oxybutynin chloride ER 10 mg tablet,extended release 24 hr Active [facility] benzonatate 200 MG Oral Capsule [Tessalon] Tessalon 200 mg capsule Take 1 CAPSULE 3 TIMES A DAY by oral route as needed for cough. Active [facility] benzonatate 100 MG Oral Capsule [Tessalon Perles] Tessalon Perles 100 mg capsule Take 1 capsule(s) 3 times a day by oral route as needed for cough. Active [facility] Azithromycin 250 MG Oral Tablet [Zithromax] Zithromax 250 mg tablet TAKE 2 TABLETS (500 MG) BY ORAL ROUTE ONCE DAILY FOR 1 DAY THEN 1 TABLET (250 MG) BY ORAL ROUTE ONCE DAILY FOR 4 DAYS Active [facility] Allergies, Adverse Reactions, Alerts Substance Category Reaction Severity Reaction type Status Date Reported Comments Source Sulfa (Sulfonamide Antibiotics) Hives Moderate Allergy to substance 10/25/2012 [facility] Immunizations Immunization Date Given Site Status Last Updated Comments Source influenza, injectable, quadrivalent 07/11/2018 completed [facility] influenza, high dose seasonal 08/05/2015 completed [facility] Results Order Name Results Value Reference Range Date Interpretation Comments Source Influenza A negative 08/07/2018 [facility] Influenza B negative 08/07/2018 [facility] RESULT negative 08/07/2018 [facility] SWAB LOCATION Left and Right tonsillar pillars 08/07/2018 [facility] RESULT negative 06/05/2016 [facility] SWAB LOCATION Left and Right tonsillar pillars 06/05/2016 [facility] Vital Signs Vital Sign Value Date Comments Source Diastolic (mm Hg) 80 08/07/2018 [facility] Height 71 08/07/2018 [facility] Systolic (mm Hg) 110 08/07/2018 [facility] Weight 142 08/07/2018 [facility] Diastolic (mm Hg) 80 06/05/2016 [facility] Height 71 06/05/2016 [facility] Systolic (mm Hg) 150 06/05/2016 [facility] Weight 165 06/05/2016 [facility] Encounters Location Location Details Encounter Type Encounter Number Reason For Visit Attending Provider ADM Date DC Date Status Source [place] - [facility] - [id number] Nicole Clancy, DUMP GRADER: [address] [place] [address], Ph. [id number] Nicole Clancy 06/05/2016 [facility] [place] - [facility] [id number] Haily Christianson PA-C: [address] [place] [address], Ph. [id number] Haily Christianson 08/07/2018 [facility] Procedures Procedure Code Date Perfomer Comments Source Cardiac Revascularization with Bypass Anastomosis [facility] Placement of Stent in Cardiac Conduit [facility] Fixed Suspension Procedure of Bladder Neck [facility] Hysterectomy [facility] Appendectomy [facility] Tonsillectomy [facility]
--- OUTSIDE RECORDS SUMMARY | 2018-08-20 10:38 | XMS REPORT | Encounter Summary ---
Author Organization Unknown Address [address] [place] [address] Phone [phone] Reason for Visit Medical Complaint Instructions 1. Cough 2. Fever rapid flu (A+B) 3. Decreased breath sounds 4. Nasal congestion 5. Sore throat symptom rapid strep group A, throat Discussion Note Pt was sent to urgent care for chest xray as concern for pneumonia is high Patient educational handouts: No information available. Plan of Care Reminders Provider Appointments None recorded. Lab Rapid Strep Group a, Throat 08/07/2018 [facility] Rapid Flu (A+B) 08/07/2018 [facility] Referral None recorded. Procedures None recorded. Surgeries None recorded. Imaging None recorded. Medications Name Start Date carvedilol 6.25 mg tablet clopidogrel 75 mg tablet losartan 50 mg-hydrochlorothiazide 12.5 mg tablet metformin 1,000 mg tablet Restasis 0.05 % eye drops in a dropperette simvastatin 20 mg tablet Zostavax (PF) 19,400 unit/0.65 mL subcutaneous suspension Medications Administered None recorded. Vitals Height Weight BMI Blood Pressure 5 ft 11 in 142 lbs 19.8 kg/m2 110/80 mm[Hg] Lab Results Date Name Specimen Result Interpretation Description Value Range Status Address Rapid Flu (A+B) Influenza a negative [facility]: [address] [place] [address] Influenza B negative [facility]: [address] [place] [address] Rapid Strep Group a, Throat Result negative [facility]: [address] [place] [address] Swab Location Left and Right tonsillar pillars [facility]: [address] [place] [address] Allergies Code Code System Name Reaction Severity Status Onset Sulfa (Sulfonamide Antibiotics) Hives Moderate Active Problems Name Status Onset Date Source Hyperlipidemia Active 08/07/2018 Heart Disease Active 08/07/2018 Cerebrovascular Accident Active 08/07/2018 Pneumonia Active 08/07/2018 Arthritis Active 08/07/2018 Hyperglycemia Active 08/07/2018 Elevated Blood Pressure Active Encounter Procedures Date Name Performed by Cardiac Revascularization with Bypass Anastomosis Information not available Placement of Stent in Cardiac Conduit Information not available Fixed Suspension Procedure of Bladder Neck Information not available Hysterectomy Information not available Appendectomy Information not available Tonsillectomy Information not available Vaccine List Vaccine Type influenza, high dose seasonal 08/05/2015 influenza, injectable, quadrivalent 07/11/2018 Social History Smoking Status Never Smoker Past Encounters 08/07/2018 Cough; Fever; Decreased Breath Sounds; Nasal Congestion; Sore Throat Symptom Haily Christianson PA-C: [address] [place] [address], Ph. History of Present Illness Cough Reported By: Patient HPI: Location: chest, nasal/sinus. Quality: productive cough, sore throat, colored phlegm, congested, hacking cough. Duration: 5 days. Severity: mild. Onset/Timing: sudden. Context: no sick contacts, no foreign travel, non-smoker. Modifying factors: OTC medication. Associated Symptoms: no shortness of breath, no wheezing, no sweats, no significant weight gain, no significant weight loss, no morning cough, no vomiting, no diarrhea, no rash, no muscle aches, yellow sputum, sore throat, nausea, fever/chills, headache Review of Systems Basic Reported By: Patient Constitutional: Constitutional: fever Eyes: Eyes: no eye complaints Vszo-Rlyk-Vdldx-Throat: Ears: ear pain. Nose: nose/sinus problems. Mouth/Throat: no bleeding gums, no mouth complaints, no teeth problems, sore throat Cardiovascular: Cardiovascular: no chest pain, no shortness of breath, no known heart murmur Respiratory: Respiratory: cough, wheezing, shortness of breath Gastrointestinal: Gastrointestinal: no abdominal pain, no vomiting / diarrhea Genitourinary: Genitourinary: no urinary complaints, no discharge Musculoskeletal: Musculoskeletal: no muscle aches, no muscle weakness, no arthralgias/joint pain, no back pain Skin: Skin: no abnormal / changing mole, no jaundice, no rashes Neurologic: Neurologic: no loss of consciousness, no weakness, no numbness, no seizures, no headaches, dizziness, headache Physical Exam Adult Basic Reported By: Patient Constitutional: General Appearance: healthy-appearing, well-nourished, well-developed. Level of Distress: NAD. Ambulation: limited ambulation Psychiatric: Mental Status: active and alert. Orientation: to time, to place, to person Eyes: Lids and Conjunctivae: non-injected, no discharge, no pallor. Pupils: PERRLA. EOM: EOMI. Sclerae: non-icteric. Vision: acuity grossly intact Kch-Ikpu-Cqroy-Throat: Ears: no lesions on external ear, no outer ear tenderness, EACs clear, TMs clear. Hearing: no hearing loss. Nose: no lesions on external nose, nares patent, no septal deviation, nasal passages clear, no sinus tenderness, nasal discharge, post nasal drip. Lips, Teeth, and Gums: no mouth or lip ulcers, no bleeding gums, normal dentition. Oropharynx: moist mucous membranes, no erythema, no exudates, tonsils not enlarged; cobblestoning Neck: Neck: supple, trachea midline, no masses, FROM. Lymph Nodes: no cervical LAD, no supraclavicular LAD Lungs: Respiratory effort: no dyspnea, no tachypnea, no use of accessory muscles, no intercostal retractions. Auscultation: decreased breath sounds Cardiovascular: Heart Auscultation: RRR, no murmurs
--- OUTSIDE RECORDS SUMMARY | 2018-08-20 10:45 | XMS REPORT ---
Author Author [facility] Address Unknown Phone Unavailable Care Team Providers Care Detective And Intelligence Analyst Name Role Phone DANIELA PERAZA Unavailable Unavailable Problems This patient has no known problems. Allergies, Adverse Reactions, Alerts This patient has no known allergies or adverse reactions. Medications This patient has no known medications. Results Test Description Test Time Test Comments Text Results Atomic Results Result Comments MODIFIED BA. SWALLOW 2018-08-13 10:10:00 [place] [address] Patient Name: NALDO SHAFER MR #: [id number] : 1930 Age/Sex: 88/F Req #: [id number] [facility] Physician: DANIELA PERAZA MD Ordered by: KEITH PADRON MD Report #: [id number] Location: MED/[id number] Room/Bed: [facility] Procedure: [id number] DX/MODIFIED BA. SWALLOW Exam Date: 08/09/18 Exam Time: 1430 REPORT STATUS: Signed PROCEDURE: X-RAY MODIFIED BARIUM SWALLOW COMPARISON: None. INDICATION: Difficulty swallowing DISCUSSION: Fluoroscopic examination was performed in conjunction with speech pathology during swallowing a variety of thin and thick liquid consistencies. CONCLUSION: Limited fluoroscopic sequences are provided which demonstrate a small amount of penetration to the level of the vocal cords with associated aspiration. Please refer to speech pathology report for further details. Signed by: Dr. Trev Urban MD on 08/13/2018 12:07 PM Dictated By: TREV URBAN MD 06 Transcribed By: CAL on 08/13/181206 COPY TO: KEITH PADRON MD CT CHEST WITH CONTRAST-HOPD 2018-08-08 12:39:00 [place] [address] Patient Name: NALDO SHAFER MR #: [id number] : 1930 Age/Sex: 88/F Req #: [id number] Adm Physician: DANIELA PERAZA MD Ordered by: RYAN VENEGAS MD Report #: [id number] Location: [facility] Room/Bed: [place] [address] Procedure: [id number] HOPD/CT CHEST WITH CONTRAST-[facility] Exam Date: 08/08/18 Exam Time: 1235 REPORT STATUS: Signed EXAMINATION: CT scan of the chest with contrast. TECHNIQUE: Spiral CT images of the chest were performed from the lung apices to the level of the adrenal glands after the intravenous administration of 75 cc of Isovue-370. Coronal and sagittal reformatted images were obtained. COMPARISON: Chest radiograph same day CLINICAL HISTORY:Cough DISCUSSION: LINES/TUBES: None. LUNGS AND AIRWAYS: Scattered subcentimeter bilateral pulmonary nodules as follows: 5 mm right upper lobe series 3 image 44 4 mm right upper lobe series 3 image 60 5 mm lingular series 3 image 69 5 mm left lower lobe series 3 image 96 4 mm left lower lobe x2 series 3 image 100 5 mm right lower lobe series 3 image 91 5 mm superior segment right lower lobe, calcified, series 3 image 55. There are fairly extensive tree-in-bud nodular opacities within the right upper and lower lobes, and, to a lesser extent in the right middle lobe and lingula. Bandlike opacities in the lung bases, with associated segmental mucoid impaction as seen on series 3 image 99 and 87. PLEURA: No pneumothorax or pleural effusions. HEART AND MEDIASTINUM: Heterogeneous enlargement of the left lobe of the thyroid with a 1.5 cm hypoattenuating nodule and several coarse calcifications with retrosternal extension. Bilateral hilar lymphadenopathy with multiple mildly prominent mediastinal lymph nodes. Pulmonary outflow tract is of normal caliber. No ectasia or aneurysmal dilatation of the thoracic aorta. No pericardial effusion. Atherosclerotic calcification of the aortic arch, great vessels, and [place] coronary arteries. LYMPH NODES: As above ABDOMEN: Coarse calcification in hepatic segment 7. Visualized portions of the liver, spleen, pancreas, and adrenals are otherwise unremarkable. BONES AND SOFT TISSUES: Coarse calcification in the left breast. Otherwise no focal soft tissue abnormalities. No osseous destructive lesions. Postsurgical changes of the sternum and mediastinum. Multilevel degenerative disc changes of the partially visualized thoracic and lower cervical spine. IMPRESSION: Diffuse tree-in-bud and groundglass opacities suggestive of atypical infection, to include nontuberculous mycobacterium as well as fungal etiologies. Reactive hilar and mild mediastinal lymphadenopathy. Segmental mucoid impaction in the lower lobes with postobstructive aspiration pneumonitis. Scattered bilateral pulmonary nodules measuring up to 5 mm, likely sequela of prior granulomatous disease. If the patient is at high risk for malignancy, a follow-up CT scan of the chest without contrast is suggested in one year to assess for stability. 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 Heterogeneous left thyroid nodule may be further assessed by outpatient ultrasound. Signed by: Dr. Carolyn Diamond M.D. on 08/08/2018 12:53 PM Dictated By: CAROLYN DIAMOND MD 1253 Transcribed By: CAL on 08/08/18 1253 COPY TO: RYAN VENEGAS MD CXR 2 VIEW - HOPD 2018-08-08 11:32:00 [place] [address] Patient Name: NALDO SHAFER MR #: [id number] : 1930 Age/Sex: 88/F Req #: [id number] [facility] Physician: Ordered by: RYAN VENEGAS MD Report #: [id number] [facility] Room/Bed: Procedure: [id number] HOPD/CXR 2 VIEW - [facility]OPD Exam Date: 08/08/18 Exam Time: 1125 REPORT STATUS: Signed EXAMINATION: PA and lateral views of the chest. COMPARISON: None CLINICAL HISTORY: Cough x1 week DISCUSSION: The lungs are well-inflated. No focal consolidation, pleural effusion, or pneumothorax. Scattered faint nodular opacities throughout the right and left lungs. Postsurgical changes of the mediastinum with intact sternotomy wires and surgical clips. Normal heart size. Tortuous thoracic aorta with atherosclerotic calcification. No overt pulmonary edema. No acute osseous abnormality. IMPRESSION: No acute cardiopulmonary abnormality. Specifically, no evidence of consolidative pneumonia in this patient with reported history of cough. Scattered bilateral small nodular opacities are likely sequela of prior infectious or inflammatory process in the absence of known malignancy. Prior chest radiographs, if available, would be useful for comparison purposes. In the absence of prior chest radiographs, nonemergent CT scan of the chest without contrast is suggested for further evaluation. Signed by: Dr. Carolyn Diamond M.D. on 08/08/2018 11:35 AM Dictated By: CAROLYN DIAMOND MD 1135 Transcribed By: CAL on 08/08/18 [id number] COPY TO: RYAN VENEGAS MD
== END 2018-08-12 17:39 | disposition home or self-care (01) | DRG 871 ==
LOC: FSED 10:46 → ERHOLD 12:02 → IMCU 16:24 → MED/SURG3 08-11 11:13
PROVIDERS: ADMIT Internal Medicine; ATTEND Internal Medicine
DX: A41.9 Sepsis, unspecified organism (principal); J69.0 Pneumonitis due to inhalation of food and vomit; J18.9 Pneumonia, unspecified organism; N17.9 Acute kidney failure, unspecified; E44.0 Moderate protein-calorie malnutrition; Z86.73 Personal history of transient ischemic attack (TIA), and cerebral infarction without residual deficits; I25.10 Atherosclerotic heart disease of native coronary artery without angina pectoris; I10 Essential (primary) hypertension; Z95.1 Presence of aortocoronary bypass graft; Z95.5 Presence of coronary angioplasty implant and graft; R59.1 Generalized enlarged lymph nodes; R91.8 Other nonspecific abnormal finding of lung field; E04.1 Nontoxic single thyroid nodule; E78.5 Hyperlipidemia, unspecified; Z88.2 Allergy status to sulfonamides; E86.0 Dehydration; E11.65 Type 2 diabetes mellitus with hyperglycemia; R13.10 Dysphagia, unspecified
CPT/HCPCS: 36415; 71046; 71260; 74230; 80048; 80053; 80061; 82550; 82553; 82948; 83036; 83880; 84484; 85025; 85610; 87040; 87400; 87449; 93005; 94640; 97139; 99284; J0696; J1650; J2930; J7030

== ENCOUNTER → 2018-09-19 | Outpatient (CLI) | payer MEDICARE, OTHER ==
[~2018-09-19] MED LIST: COREG3.125 MG PO; FISH OIL 1,0001 EACH PO; GLUCOPHAGE850 MG; HYZAAR 50-12.51 EACH PO; ISOSORBIDE MONO30 MG PO; LEVAQUIN500 MG PO; METFORMIN HCL500 MG PO; MIRALAX17 GM PEG; MULTI-VITAMIN1 EACH PO; NITROGLYCERIN0.4 MG SL; PLAVIX75 MG PO; SIMVASTATIN20 MG PO; TESSALON PERLE100 MG PO
--- NOTE | 2018-09-19 09:28 | Diagnostic Imaging Report ---
PROCEDURE: CT CHEST WITHOUT CONTRAST CT scan of the chest WITHOUT intravenous contrast, using standard protocol. TECHNIQUE: The chest was scanned utilizing a multidetector helical scanner from the apex to the level of the adrenal glands. No IV contrast was administered per physician's request. Coronal and sagittal multiplanar reformations were obtained. COMPARISON: [facility], [facility] CT CHEST WITH CONTRAST-[facility] 08/08/2018, 12:16. INDICATIONS: aspiration pneumonia FINDINGS: Lines/tubes: None. Lungs and Airways: Multiple bilateral pulmonary nodules are again identified in both upper and lower lobes and right middle lobe, some of which are subpleural, ranging in size from 4-5 mm, most of which are stable since the prior exam (series 3, images 28, 33, 44, 56, 62, 73, 89, 93, 100, 101, 102, 113). Interval development of a 1.3 x 1.4 x 1.4 cm nodular density in the right upper lobe in an area of previously described tree in bud opacities (series 3, image 39), which are still visualized. Interval improvement in segmental impaction and associated consolidation in the anterior right lower lobe (series 3, image 98), and medial left lower lobe (series 3, image 98). A 0.5 cm nodular lesion with lucent center in the lateral right upper lobe (series 3, image 56) is near since the prior exam, in an area of prior nodularity. Stable tree in the opacities in the lateral lingula (series 3, images 64-67). Stable scarring and likely segmental bronchial impaction in the medial right middle lobe (series 3, image 93). No new consolidation. Pleura: No effusion or pneumothorax. Heart and mediastinum: Unchanged enlargement of the left thyroid lobe and 1.5 cm hypoattenuating lesion with coarse calcifications and retrosternal extension. No interval change in bilateral enlarged hilar and borderline enlarged. Mediastinal adenopathy. Heart size is normal. No pericardial effusion. Atherosclerotic calcification of the coronary arteries and thoracic aorta. Abdomen: Limited views of the upper abdomen show stable coarse calcification in hepatic segment VII/VIII at the dome. Visualized pancreas, kidneys, spleen, and adrenal glands, are unremarkable. Bones: No aggressive lytic lesions. Multilevel degenerative disc changes in the thoracic spine. Midline sternotomy wires. IMPRESSION: 1. interval development of a 1.4 cm nodular density in the right upper lobe in area of previously described tree in the opacities, likely representing a focal, segmental bronchial impaction or focal consolidation. Neoplasm is not a likely consideration, given the appearance in approximately one month. 2. Persistent tree in bud opacities in the lateral right upper lobe and lingula, suggesting endobronchial spread of infection, including atypical mycobacterial organisms, such as KWAME. 3. Interval improvement in segmental impaction and associated consolidation/postobstructive pneumonitis in the anterior right lower lobe and medial left lower lobe. 4. Stable bilateral pulmonary nodules, likely post infectious. 5. 0.5 cm nodular lesion with lucent center in the lateral right upper lobe is new. This may represent a tiny cavitary lesion, particularly if mycobacterial disease is considered. 6. Stable enlargement of the left thyroid lobe, and 1.5 cm nodule Enrico Burch M.D. Dictated by: Enrico Burch M.D. on 09/19/2018 at 9:37 Electronically approved by: Enrico Burch M.D. on 09/19/2018 at 9:37
--- NOTE | 2018-09-19 09:59 | Diagnostic Imaging Report ---
PROCEDURE: US THYROID COMPARISON: CT chest without contrast 09/19/2018. INDICATIONS:MULTIPLE THYROID NODULES TECHNIQUE: Transverse and longitudinal sanchez-scale sonographic images of the thyroid were obtained and supplemented with color doppler. FINDINGS: Right thyroid lobe: 4.5 x 1.1 x 1.2 cm. 0.3 cm dystrophic calcification in the interpolar region. Small isoechoic nodules measuring up to 1.1 cm. Left thyroid lobe: 5.8 x 2.8 x 2.1 cm. Dominant nodule measuring 2.8 by 2 x 2 centimeters in the upper pole, mixed cystic and solid, hypoechoic, wider than tall, smoothly marginated, coarse calcifications, TR 4. Additional smaller nodules measuring up to 1.6 cm. Isthmus: 0.3 cm. CONCLUSION: TR 4 nodule in the left lobe, 2.8 cm in maximum diameter. FNA is suggested per ACR criteria. Additional bilateral thyroid nodules may be assessed for stability by ultrasound in one year. Dictated by: Arvind Adames M.D. on 09/19/2018 at 10:08 Electronically approved by: Arvind Adames M.D. on 09/19/2018 at 10:08
--- NOTE | 2018-09-19 12:16 | Diagnostic Imaging Report ---
PROCEDURE:ULTRASOUND GUIDANCE FOR PROCEDURE COMPARISON:Thyroid ultrasound same date. INDICATIONS: LT THYROID NODULE COMPLICATIONS: No immediate MEDICATIONS: Lidocaine 1% for local anesthesia BLOOD LOSS: Minimal Blood products administered: None Implants/grafts: None Specimens: Fine-needle aspiration specimens x5 Condition at completion of procedure: Stable Disposition: Discharge home PROCEDURE: Informed consent for the procedure was obtained from the patient and documented in the medical record after discussion of risks and benefits. The patient was placed in the supine position on the sonographic table and the left cervical region was prepped and draped in the standard sterile fashion. A suitable percutaneous approach to the complex left thyroid nodule was identified and 1% lidocaine was infiltrated into the skin and subcutaneous tissues for local anesthesia. Then under continuous sonographic guidance a total of 5 fine needle aspiration specimens were obtained using 25 gauge needles, with adequacy confirmed by on-site cytopathology personnel. At the conclusion of sampling the needle was removed and a sterile dressing was applied. The patient tolerated the procedure well without immediate complication. CONCLUSION: Successful ultrasound-guided fine needle aspiration of a complex left thyroid nodule without immediate complication. Dictated by: Arvind Adames M.D. on 09/19/2018 at 12:25 Electronically approved by: Arvind Adames M.D. on 09/19/2018 at 12:25
== END ==
LOC: CT 08:02
PROVIDERS: ATTEND Otolaryngology
DX: E04.2 Nontoxic multinodular goiter (principal)
CPT/HCPCS: 10022; 71250; 76536; 76942; 88112; 88172; 88173; 88305

== ENCOUNTER → 2019-04-04 | Outpatient (CLI) | payer MEDICARE, OTHER ==
--- NOTE | 2019-04-04 09:20 | Diagnostic Imaging Report ---
EXAMINATION: CT scan of the chest without contrast. TECHNIQUE: Spiral CT images of the chest were performed from the lung apices to the level of the adrenal glands. No intravenous contrast was administered per referring physician request. Coronal and sagittal reformatted images were obtained. COMPARISON: CT chest with contrast 08/08/2018 CLINICAL HISTORY:Nodule DISCUSSION: ABSENCE OF INTRAVENOUS CONTRAST DECREASES SENSITIVITY FOR DETECTION OF FOCAL LESIONS AND VASCULAR PATHOLOGY. LINES/TUBES: None. LUNGS AND AIRWAYS: Unchanged 4 mm nodule right upper lobe series 3 image 34; unchanged 4 mm nodule anterior right upper lobe, series 3 image 37; unchanged 5 mm lymph node periphery of the right upper lobe, series 3 image 44; unchanged 4 mm nodule juxtapleural right upper lobe, series 3 image 60; unchanged calcified granuloma superior segment right lower lobe; unchanged 3 mm juxtapleural nodule immediately posterior to the trachea (series 3 image 46); unchanged 5 mm nodule at a right upper lobe bronchial branch point, series 3 image 56; new branching opacities in the posterior right upper lobe seen on series 3 image 39 through 43. Unchanged 4 mm juxtapleural nodule lateral segment right lower lobe, series 3 image 89; unchanged juxtapleural paramediastinal lymph node medial segment right lower lobe series 3 image 89; complete resolution of right lower lobe segmental mucoid impaction with postobstructive pneumonia. Near complete resolution of groundglass and tree-in-bud opacities in the right lower lobe. Resolution of consolidation in the medial segment of the left lower lobe. Near complete resolution of groundglass and tree-in-bud opacities in the left lower lobe. Scattered stable 3-4 mm juxtapleural nodules left lower lobe, series 3 image 109, 107, and 102. Interval near complete resolution of groundglass and tree-in-bud opacities in the lingula. Stable 3 mm left upper lobe nodule series 3 image 46. Stable 4 mm left upper lobe nodule series 3 image 49. Stable 4 mm juxtapleural left upper lobe nodule series 3 image 57. Stable 5 mm lingular nodule series 3 image 73. No new consolidations. Trachea, mainstem bronchi, and central lobar and segmental bronchi are patent. PLEURA: No pneumothorax or pleural effusions. HEART AND MEDIASTINUM: Hypoattenuating left thyroid nodule is again noted. Atherosclerotic calcification of the aortic arch, coronary arteries, and great vessel origins. No ectasia or aneurysmal dilatation of the thoracic aorta. Pulmonary outflow tract is of normal caliber. Unchanged mildly prominent mediastinal and right hilar lymph nodes. No pericardial effusion. LYMPH NODES: As above. ABDOMEN: Visualized portions of the liver, spleen, pancreas, and adrenal glands are unremarkable. BONES AND SOFT TISSUES: No osseous destructive lesions. 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 IMPRESSION: Relative to 08/08/2018, near complete resolution of previously described tree-in-bud and groundglass opacities, with persistent mild hilar and mediastinal lymphadenopathy. Resolution of bilateral lower lobe segmental mucoid impaction and postobstructive pneumonitis. Interval development of segmental mucoid impaction in the right upper lobe posteriorly. Stable bilateral scattered pulmonary nodules measuring up to 5 mm, likely postinfectious or inflammatory. Consider follow-up CT scan of the chest without contrast in one year if the patient is at high risk of malignancy. 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 Consider ultrasound for further evaluation. Signed by: Dr. Arvind Adames M.D. on 04/04/2019 9:16 AM
== END ==
LOC: CT 08:14
PROVIDERS: ATTEND Internal Medicine Critical Care Medicine
DX: R91.8 Other nonspecific abnormal finding of lung field (principal); E04.1 Nontoxic single thyroid nodule; I99.8 Other disorder of circulatory system; Z95.1 Presence of aortocoronary bypass graft
CPT/HCPCS: 71250

== ENCOUNTER → 2019-06-27 | Outpatient (CLI) | payer MEDICARE, OTHER ==
--- NOTE | 2019-06-27 12:52 | Diagnostic Imaging Report ---
EXAMINATION: CT scan of the chest without contrast. TECHNIQUE: Spiral CT images of the chest were performed from the lung apices to the level of the adrenal glands. No intravenous contrast was administered per referring physician request. Coronal and sagittal reformatted images were obtained. COMPARISON: CT chest without contrast dated 04/04/2018 CLINICAL HISTORY:Infiltrates DISCUSSION: ABSENCE OF INTRAVENOUS CONTRAST DECREASES SENSITIVITY FOR DETECTION OF FOCAL LESIONS AND VASCULAR PATHOLOGY. LINES/TUBES: None. LUNGS AND AIRWAYS: Right: Unchanged 4 mm nodule right upper lobe, series 3 image 32. Unchanged 4 mm nodule anterior right upper lobe, series 3 image 38. Unchanged 5 mm lymph node periphery of the right upper lobe, series 3 image 44. Unchanged 4 mm nodule juxtapleural right upper lobe, series 3 image 63. Unchanged 3 mm juxtapleural nodule immediately posterior to the trachea, series 3 image 41. Unchanged 5 mm nodule at a right upper lobe bronchial branch point, series 3 image 53. Increasing opacities in the right posterior upper lobe seen on series 3 images 32 through 40 which is likely secondary to mucoid impaction with atelectasis. Unchanged 4 mm juxtapleural nodule lateral segment right lower lobe, series 3 image 84. Unchanged juxtapleural paramediastinal lymph node medial segment right lower lobe series 3 image 80. Left: Scattered stable 3-4 mm juxtapleural nodules left lower lobe, series 3 image 87, 78, 47. Stable 3 mm left upper lobe nodule series 3 image 39. Stable 4 mm left upper lobe nodule series 3 image 48. Stable 4 mm juxtapleural left upper lobe nodule series 3 image 58. Stable 5 mm lingular nodule series 3 image 70. The trachea, mainstem bronchi, and central lobar and segmental bronchi are patent. PLEURA: No pneumothorax or pleural effusions. HEART AND MEDIASTINUM: Hypoattenuating left thyroid nodule is again noted. Atherosclerotic calcification of the aortic arch, coronary arteries, and great vessel origins. The thoracic aorta is of normal course and caliber.. Pulmonary outflow tract is of normal caliber. No pathologically large mediastinal lymph nodes are identified. No pericardial effusion. ABDOMEN: Visualized portions of the liver, spleen, pancreas, and adrenal glands are unremarkable. BONES AND SOFT TISSUES: No acute osseous abnormality.. The patient is status post median sternotomy and coronary bypass. IMPRESSION: Interval progression of segmental mucoid impaction of the right posterior upper lobe with increasing atelectasis Unchanged bilateral scattered pulmonary nodules measuring up to 5 mm, likely postinfectious or inflammatory. Signed by: Apolinar Coon MD on 06/27/2019 12:49 PM
== END ==
LOC: CT 11:33
PROVIDERS: ATTEND Internal Medicine Critical Care Medicine
DX: R91.8 Other nonspecific abnormal finding of lung field (principal)
CPT/HCPCS: 71250

== ENCOUNTER → 2019-09-17 | Outpatient (CLI) | payer MEDICARE, OTHER ==
--- NOTE | 2019-09-17 15:35 | Diagnostic Imaging Report ---
Thyroid ultrasound CPT code: 56759 History: Multiple thyroid nodules Comparison: None Findings: The thyroid echotexture is heterogeneous. Vascularity is increased. The right lobe measures 4.5 x 1.5 x 1.5 cm. The left lobe measures 5.6 x 2.3 x 2.8 cm. The isthmus measures 0.3 cm. Nodules (measurements are AP, transverse, craniocaudal): Right Lobe: 3 x 2 x 3 mm interpolar calcified nodule with posterior acoustic shadowing. 8 x 5 x 7 mm lower pole isoechoic circumscribed nodule without internal calcification. Left Lobe: 2.5 x 2.1 x 2.2 cm interpolar spongiform nodule is well-circumscribed without internal calcification. This nodule previously measured up to 2.8 cm. A 1.9 x 1.4 x 1.3 cm interpolar spongiform nodule is well-circumscribed without internal calcification. Isthmus: No cystic mass or discrete solid nodule identified. Lymph Nodes: No cervical lymph nodes are identified. Parathyroids: Not visualized. IMPRESSION: Bilateral thyroid nodules as above. The largest nodule on the left measures up to 2.5cm (previously 2.8cm) and is not suspicious (TI-RADS 2) ACR glossary of thyroid rads TI-RADS 1: No focal lesion. TI-RADS 2: Not suspicious. TI-RADS 3: Mildly suspicious (recommend FNA is greater than or equal to 2.5 cm; follow-up at 1, 3, and 5 years if greater than or equal to 1.5 cm) TI-RADS 4: Moderately Suspicious (recommend FNA is greater than or equal to 1.5 cm; follow-up at 1, 2, 3, and 5 years) TI-RADS 5: Highly suspicious (recommend FNA is greater than or equal to 10 mm) TI-RADS 6: Biopsy-proven malignancy Signed by: Ronnie Gaxiola MD on 09/17/2019 3:32 PM
== END ==
LOC: US 12:23
PROVIDERS: ATTEND Otolaryngology
DX: E04.2 Nontoxic multinodular goiter (principal)
CPT/HCPCS: 76536

== ENCOUNTER → 2020-08-23 | Outpatient (CLI) | payer MEDICARE, OTHER | LOC: US 10:35 | PROVIDERS: ATTEND Otolaryngology | DX: E04.2 Nontoxic multinodular goiter (principal) | CPT/HCPCS: 76536 ==

== ENCOUNTER 2021-12-26 10:10 | Emergency (ER) | payer MEDICARE, OTHER ==
[~2021-12-26] VITALS: Ht 180.3 cm; Wt 66.0 kg
[~2021-12-26 10:10] MED LIST changes: -GLUCOPHAGE850 MG; +GLUCOPHAGE850 MG PO
[2021-12-26] MEDS ORDERED: DYMISTA NASAL S23 GM INH (10:46)
[2021-12-26] MEDS ORDERED: FLONASE ALLERG9.9 ML INH (10:46)
[2021-12-26] MEDS ORDERED: MOBIC15 MG PO (10:46)
[2021-12-26] MEDS ORDERED: HYDROCODONE/APAP 5MG-325MG TAB PO ONE (11:00)
[2021-12-26] MEDS ORDERED: HYDROCODONE/APAP 5MG-325MG TAB ONE (11:08)
[2021-12-26] MEDS ORDERED: ACETAMINOPHEN-1 EAC3 PO (14:14)
== END 2021-12-26 14:21 | disposition home or self-care (01) ==
LOC: FSED 10:49
DX: S00.83XA Contusion of other part of head, initial encounter (principal); S20.219A Contusion of unspecified front wall of thorax, initial encounter; S30.1XXA Contusion of abdominal wall, initial encounter; W18.2XXA Fall in (into) shower or empty bathtub, initial encounter; Y93.E1 Activity, personal bathing and showering; Y92.091 Bathroom in other non-institutional residence as the place of occurrence of the external cause; I10 Essential (primary) hypertension; E11.9 Type 2 diabetes mellitus without complications; E78.5 Hyperlipidemia, unspecified; I25.10 Atherosclerotic heart disease of native coronary artery without angina pectoris; Z86.73 Personal history of transient ischemic attack (TIA), and cerebral infarction without residual deficits; Z95.1 Presence of aortocoronary bypass graft; Z95.5 Presence of coronary angioplasty implant and graft
CPT/HCPCS: 70450; 71250; 72125; 74176; 99284